=== PATIENT | female | born 1945 | race Caucasian/White ===

== ENCOUNTER → 2024-07-23 09:01 | Outpatient (REF) | payer MEDICARE, SELFPAY ==
[2024-07-23 11:37] LABS: Hematocrit 44.1 % (37.0-47.0); Hemoglobin 14.4 g/dL (12.0-16.0); Mean Corp Hgb Conc. 32.7 g/dL (33.0-37.0); Mean Corpuscular Hgb 31.1 pg (27.0-31.0); Mean Corpuscular Volume 95.2 fL (81.0-99.0); Mean Platelet Volume 10.8 fL (7.4-10.4); Platelet Count 200 10^3/uL (130-400); Red Blood Cell Count 4.63 10^6/uL (4.20-5.40); Red Cell Dist. Width 14.2 % (11.5-14.5); White Blood Cell Count 6.5 10^3/uL (4.8-10.8)
[2024-07-23 11:42] LABS: Blood Urea Nitrogen 18 mg/dl (7-17); Calcium 9.6 mg/dl (8.4-10.2); Carbon Dioxide 30 mmol/L (22-30); Chloride 99 mmol/L (98-107); Glucose 84 mg/dl (70-99); Potassium 4.1 mmol/L (3.5-5.1); Sodium 134 mmol/L (135-145); eGFR > 60.00
== END ==
LOC: SDSPAT 09:01
PROVIDERS: ATTENDING PHYSICIAN Orthopaedic Surgery; FAMILY PHYSICIAN Family Medicine
DX: Z01.818 Encounter for other preprocedural examination (principal)
CPT/HCPCS: 36415; 80048; 85027; 93005

== ENCOUNTER 2024-07-29 06:23 | Day surgery (SDC) | payer MEDICARE, SELFPAY ==
[2024-07-23 14:13] VITALS: BMI 21.3
[2024-07-29] VITALS (7 sets, daily range): BP systolic 104–127; BP diastolic 51–73; BMI 21.3
[2024-07-29] MEDS: NORMOSOL-R/PLASMALYTE-A 1000 IV (07:48)
--- NOTE | 2024-07-30 13:31 | PTCARENOTE ---
Pt called unit asking which antibiotic she received while here at . Given full name and spelling of antibiotic, pt will reach out to her physician in regards if she is okay to take her home medications.
== END 2024-07-29 12:28 | disposition home or self-care (01) ==
LOC: SDS 06:23
PROVIDERS: ATTENDING PHYSICIAN Orthopaedic Surgery; FAMILY PHYSICIAN Family Medicine
DX: S56.497A Other injury of extensor muscle, fascia and tendon of right little finger at forearm level, initial encounter (principal); X58.XXXA Exposure to other specified factors, initial encounter; M06.9 Rheumatoid arthritis, unspecified; M19.031 Primary osteoarthritis, right wrist
CPT/HCPCS: 25337; 25240